=== PATIENT | female | born 1945 | race Caucasian/White ===

== ENCOUNTER → 2024-05-26 09:25 | Outpatient (CLI) | payer MEDICARE, OTHER, SELFPAY ==
--- NOTE | 2024-05-26 09:31 | DI.RAD.S_ITS ---
PROCEDURE: FL JOINT INJECTION LARGE RT INDICATIONS: pain in rt hip COMPARISON: None. TECHNIQUE: The indications, alternatives, benefits, risks, and complications of the procedure were explained to the patient. Written informed consent was obtained and placed in the chart. The patient was placed in an appropriate position on the fluoroscopy table, and a site was chosen for percutaneous access under fluoroscopic guidance. The site was prepped and draped in a sterile fashion. Local anesthetic was administered using a 1% lidocaine solution. A hypodermic or spinal needle was then used to access the symptomatic joint. Intra-articular location of the needle tip was confirmed by injecting a small amount of contrast, followed by steroid administration. The needle was then withdrawn, and a bandage applied to the puncture site. FINDINGS: Joint injected: right femoroacetabular joint. Medications injected: 4 mL of 40 mg/mL Kenalog and 0.5% Ropivacaine mixture. Patient's pain before injection: 8-9 out of 10. Patient's pain after injection: 0 out of 10. Complications: None. IMPRESSION: Successful fluoroscopically guided administration of steroid and anaesthetic solution into the right hip joint. Dictated by: Alfredito Valles M.D. on 05/26/2024 at 11:46 Approved by: Alfredito Valles M.D. on 05/26/2024 at 11:54
== END ==
DX: M25.551 Pain in right hip (principal)
CPT/HCPCS: 20610; 77002; Q9967

== ENCOUNTER → 2024-09-20 08:48 | Outpatient (CLI) | payer MEDICARE, OTHER, SELFPAY ==
--- NOTE | 2024-09-20 08:50 | DI.RAD.S_ITS ---
PROCEDURE: FL JOINT INJECTION LARGE RT INDICATIONS: ACUTE HIP PAIN COMPARISON: [facility], , FL JOINT INJECTION LARGE RT, 05/26/2024, 9:18. TECHNIQUE: The indications, alternatives, benefits, risks, and complications of the procedure were explained to the patient. Written informed consent was obtained and placed in the chart. The patient was placed in an appropriate position on the fluoroscopy table, and a site was chosen for percutaneous access under fluoroscopic guidance. The site was prepped and draped in a sterile fashion. Local anesthetic was administered using a 1% lidocaine solution. A hypodermic or spinal needle was then used to access the right hip joint. Intra-articular location of the needle tip was confirmed by injecting approximately 2 mL of Omnipaque 300 contrast, followed by 5 mL steroid mixture administration. The needle was then withdrawn, and a bandage applied to the puncture site. FINDINGS: Joint injected: Right hip Medications injected: 5 mL of 40 mg/mL Kenalog and 0.5% Ropivacaine mixture. Patient's pain before injection: 8 out of 10. Patient's pain after injection: 1 out of 10. Complications: None. IMPRESSION: Successful fluoroscopically guided administration of steroid and anaesthetic solution into the right hip joint. Dictated by: Duc Velazquez M.D. on 09/20/2024 at 14:57 Approved by: Duc Velazquez M.D. on 09/20/2024 at 14:59
[2024-09-20] MEDS: TRIAMCINOLONE 40 MG/ML VIAL INTRA-ARTI (09:41)
[2024-09-20] MEDS: LIDOCAINE 1% 20 ML INJ (09:41)
[2024-09-20] MEDS: ROPIVACAINE 0.5% PF 5 MG/ML 20ML VIAL 20 ML INJ (09:41)
== END ==
PROVIDERS: Referring Provider Radiology Diagnostic Radiology; Visit Provider Radiology Diagnostic Radiology
DX: M25.551 Pain in right hip (principal)
CPT/HCPCS: 20610; 77002